=== PATIENT | male | born 1995 | race Caucasian/White ===

== ENCOUNTER 2016-12-04 22:02 | Inpatient (IN) | payer OTHER ==
[~2016-12-04] VITALS: Ht 182.9 cm; Wt 86.5 kg
[2016-12-04 22:04] VITALS: BP 138/102; PULSE 68; RESP 18; TEMP 97.8; O2SAT 98
[2016-12-04] MEDS ORDERED: SODIUM CHLOR 0.9% 1000 ML INJ 1,000 ML IV SCH (23:02)
--- NOTE | 2016-12-04 23:06 | PD ---
HPI Chief Complaint: Abdominal Pain Time Seen by Provider: 22:58 Travel History International Travel<30 days: No Contact w/Intl Traveler<30days: No Traveled to known affect area: No History of Present Illness HPI 21-year-old male complains of right lower quadrant abdominal pain and nausea vomiting diarrhea. Patient states that he has intermittent symptoms for the past year. Patient was seen at local walk-in clinic and urologist in the past for kidney stone. Patient states the symptoms started this morning and got worse this evening. Patient states the pain in cramping pain localized to right lower quadrant of the abdomen. Patient denies any pain radiation. Patient denies any fever chills. Patient states that the nausea vomiting that worse this evening. Patient denies any blood or mucus in the stool or vomitus. On a scale of 1-10 the pain is a 9. PFSH Past Medical History Medical History: Denies Significant Hx Tetanus Vaccination: < 5 Years Influenza Vaccination: No Past Surgical History Surgical History: No Previous Surgery Social History Alcohol Use: No Tobacco Use: No Substance Use: No Allergies-Medications (Allergen,Severity, Reaction): Coded Allergies: No Known Allergies (Unverified , 12/04/16) Reported Meds & Prescriptions Reported Meds & Active Scripts Active No Active Prescriptions or Reported Medications Review of Systems General / Constitutional: No: Fever Eyes: No: Visual changes HENT: No: Headaches Cardiovascular: No: Chest Pain or Discomfort Respiratory: No: Shortness of Breath Gastrointestinal: Positive: Nausea, Vomiting, Diarrhea, Abdominal Pain Genitourinary: No: Dysuria Musculoskeletal: No: Pain Skin: No Rash Neurologic: No: Weakness Psychiatric: No: Depression Endocrine: No: Polydipsia Hematologic/Lymphatic: No: Easy Bruising Physical Exam Narrative GENERAL: Well-nourished, well-developed patient. SKIN: Warm and dry. HEAD: Normocephalic. EYES: No scleral icterus. No injection or drainage. NECK: Supple, trachea midline. No JVD or lymphadenopathy. CARDIOVASCULAR: Regular rate and rhythm without murmurs, gallops, or rubs. RESPIRATORY: Breath sounds equal bilaterally. No accessory muscle use. GASTROINTESTINAL: Abdomen soft, nondistended. Patient has mild tenderness on palpation right lower quadrant of the abdomen. No rebound tenderness. No mass. MUSCULOSKELETAL: No cyanosis, or edema. BACK: Nontender without obvious deformity. No CVA tenderness. Neurologic exam normal. Data Data Last Documented VS Vital Signs Date Time Temp Pulse Resp B/P Pulse Ox O2 Delivery O2 Flow Rate FiO2 12/04/16 23:09 16 12/04/16 22:04 97.8 68 138/102 98 Room Air Orders Complete Blood Count With Diff (12/04/16 23:02) Comprehensive Metabolic Panel (12/04/16 23:02) Lipase (12/04/16 23:02) Urinalysis - C+S If Indicated (12/04/16:02) Ct Abd/Pel W/O Iv Contrast (12/04/16 23:02) Iv Access Insert/Monitor (12/04/16 23:02) Ecg Monitoring (12/04/16:) Oximetry (12/04/16:) Morphine Inj (Morphine Inj) (12/04/16 23:15) Ondansetron Inj (Zofran Inj) (12/04/16 23:15) Sodium Chlor 0.9% 1000 Ml Inj (Ns 1000 M (12/04/16 23:02) Ketorolac Inj (Toradol Inj) (12/04/16 23:15) Labs Laboratory Tests Test 12/04/16 23:25 White Blood Count 9.2 TH/MM3 Red Blood Count 5.08 MIL/MM3 Hemoglobin 15.1 GM/DL Hematocrit 43.4 % Mean Corpuscular Volume 85.5 FL Mean Corpuscular Hemoglobin 29.6 PG Mean Corpuscular Hemoglobin 34.7 % Concent Red Cell Distribution Width 12.9 % Platelet Count 243 TH/MM3 Mean Platelet Volume 7.8 FL Neutrophils (%) (Auto) 50.2 % Lymphocytes (%) (Auto) 38.7 % Monocytes (%) (Auto) 8.8 % Eosinophils (%) (Auto) 2.0 % Basophils (%) (Auto) 0.3 % Neutrophils # (Auto) 4.6 TH/MM3 Lymphocytes # (Auto) 3.6 TH/MM3 Monocytes # (Auto) 0.8 TH/MM3 Eosinophils # (Auto) 0.2 TH/MM3 Basophils # (Auto) 0.0 TH/MM3 CBC Comment DIFF FINAL Differential Comment Sodium Level 140 MEQ/L Potassium Level 3.4 MEQ/L Chloride Level 102 MEQ/L Carbon Dioxide Level 28.1 MEQ/L Anion Gap 10 MEQ/L Blood Urea Nitrogen 13 MG/DL Creatinine 1.36 MG/DL Estimat Glomerular Filtration 66 ML/MIN Rate Random Glucose 108 MG/DL Calcium Level 8.4 MG/DL Total Bilirubin 0.4 MG/DL Aspartate Amino Transf 18 U/L (AST/SGOT) Alanine Aminotransferase 27 U/L (ALT/SGPT) Alkaline Phosphatase 78 U/L Total Protein 7.2 GM/DL Albumin 3.9 GM/DL Lipase 98 U/L MDM Medical Decision Making Medical Screen Exam Complete: Yes Emergency Medical Condition: Yes Interpretation(s) Last Impressions Abdomen/Pelvis CT 12/04/16 2302 Signed Impressions: Service Date/Time: Sunday, December 04, 2016 23:29 - CONCLUSION: 1. Bilateral obstructing ureteral calculi with hydronephrosis and hydroureter noted. 2. Nonobstructing left renal calculus. Kaden Alejo MD 1:05 AM. CBC within normal limit. BMP with creatinine 1.36. Differential Diagnosis Differential diagnosis including nephrolithiasis, pyelonephritis, UTI, appendicitis, colitis. Narrative Course 21-year-old male with right lower quadrant abdominal pain, nausea vomiting diarrhea. History kidney stone. Normal saline solution 1 L IV bolus. Zofran 4 mg IV. Toradol 30 mg IV. Morphine 2 mg IV. Normal saline solution 1 25 cc an hour. Diagnosis Primary Impression: Nephrolithiasis Additional Impression: Renal insufficiency Admitting Information Admitting Physician Requests: Admit Scripts No Active Prescriptions or Reported Meds Lemuel Craig MD Dec 04, 2016 23:06
[2016-12-04 23:09] VITALS: RESP 16
[2016-12-04] MEDS ORDERED: ONDANSETRON HCL 4 MG/2 ML VIAL IVP ONE (23:15)
[2016-12-04] MEDS ORDERED: KETOROLAC TROMETHAMINE 30 MG/ML (IVP) VIAL IVP ONE (23:15)
[2016-12-04] MEDS ORDERED: MORPHINE SULFATE 4 MG/ML INJ IV PUSH ONE (23:15)
[2016-12-04 23:43] LABS: AUTOMATED NEUTROPHIL # 4.6 TH/MM3 (1.8-7.7); BASOPHIL % 0.3 % (0.0-2.0); EOSINOPHIL # 0.2 TH/MM3 (0-0.4); HEMATOCRIT 43.4 % (39.0-51.0); HEMO FLAGS DIFF FINAL; LYMPH % 38.7 % (9.0-44.0); LYMPHOCYTE # 3.6 TH/MM3 (1.0-4.8); MEAN CELL VOLUME 85.5 FL (80.0-100.0); MEAN CORPUSCULAR HEMOGLOBIN 29.6 PG (27.0-34.0); MEAN CORPUSCULAR HGB CONC 34.7 % (32.0-36.0); MONO % 8.8 % (0.0-8.0); NEUT % 50.2 % (16.0-70.0); PLATELET COUNT 243 TH/MM3 (150-450); RED BLOOD COUNT 5.08 MIL/MM3 (4.50-5.90); RED CELL DISTRIBUTION WIDTH 12.9 % (11.6-17.2); WHITE BLOOD COUNT 9.2 TH/MM3 (4.0-11.0)
--- NOTE | 2016-12-04 23:59 | RADRPT ---
EXAM DATE/TIME: 12/04/2016 23:29 [facility] COMPARISON: No previous studies available for comparison. INDICATIONS : Right flank pain. ORAL CONTRAST: No oral contrast ingested. RADIATION DOSE: 6.76 CTDIvol (mGy) MEDICAL HISTORY : Renal calculi. SURGICAL HISTORY : None. ENCOUNTER: Initial ACUITY: 1 day PAIN SCALE: 4/10 LOCATION: Right flank TECHNIQUE: Volumetric scanning of the abdomen and pelvis was performed. Using automated exposure control and ad justment of the mA and/or kV according to patient size, radiation dose was kept as low as reasonably achievable to obtain optimal diagnostic quality images. FINDINGS: Visualized portions of the liver, gallbladder, spleen, pancreas, adrenal glands unremarkable. There i s a nonobstructing left midpole renal calculus measuring 4.9 mm on image 42. There is mild left-sided hydronephrosis and proximal hydroureter secondary to 2 obstructing calculi best seen on coronal imag e 44 measuring 6.7 mm and 5.5 mm respectively.. Urinary bladder unremarkable. There is severe right-s ided hydronephrosis and mild perinephric fluid, hydroureter secondary to an obstructing calculus at t he ureterovesical junction measuring 1.2 cm on coronal image 47. There are no signs of bowel obstruct ion. The appendix is normal. No adenopathy or aneurysm. Lung bases are clear. Osseous structures are intact. CONCLUSION: 1. Bilateral obstructing ureteral calculi with hydronephrosis and hydroureter noted. 2. Nonobstructing left renal calculus. Kaden Alejo MD on December 04, 2016 at 23:55 Board Certified Radiologist. This report was verified electronically.
[2016-12-05] VITALS (7 sets, daily range): BP systolic 125–136; BP diastolic 62–89; PULSE 50–69; RESP 15–20; TEMP 97.5–98.2; O2SAT 96–100
[2016-12-05 00:02] LABS: ANION GAP 10 MEQ/L (5-15); AST (GOT) 18 U/L (15-37); BICARBONATE 28.1 MEQ/L (21.0-32.0); BLOOD UREA NITROGEN 13 MG/DL (7-18); CHLORIDE 102 MEQ/L (98-107); GLOMERULAR FILTRATION RATE 66 ML/MIN (>89); POTASSIUM 3.4 MEQ/L (3.5-5.1); SODIUM (NA) 140 MEQ/L (136-145)
[2016-12-05 00:05] LABS: ALKALINE PHOSPHATASE 78 U/L (45-117); ALT (GPT) 27 U/L (12-78); TOTAL BILIRUBIN ADULT 0.4 MG/DL (0.2-1.0)
[2016-12-05] MEDS ORDERED: SODIUM CHLOR 0.9% 1000 ML INJ 1,000 ML IV SCH (01:20)
[2016-12-05] MEDS ORDERED: ONDANSETRON HCL 4 MG/2 ML VIAL IVP PRN (01:30)
[2016-12-05] MEDS ORDERED: SODIUM CHLORIDE 0.9% FLUSH 10 ML FLUSH IV FLUSH PRN (01:30)
[2016-12-05] MEDS ORDERED: NALOXONE HCL 0.4 MG/ML AMP IV PRN (01:30)
[2016-12-05] MEDS: SODIUM CHLOR 0.9% 1000 ML INJ 1,000 ML IV SCH ×3 (01:35→18:26)
--- NOTE | 2016-12-05 03:39 | HHI.HP ---
[facility] No Primary Care Physician Admission Diagnosis nephrolithiasis. Renal insufficiency. Diagnoses: Chief Complaint: abdominal pain Travel History International Travel<30 Days: No Contact w/Intl Traveler <30 Da: No Traveled to Known Affected Are: No History of Present Illness History from patient, your physician communication, and review of medical records. Patient reports that yesterday night after dinner, he started having abdominal pain pointing to is his right lower abdomen. He stated this was radiating down to his groin and with associated right flank pain. He states that he has had history of renal stones about a year ago and was seen at an urgent care center at that time. He was told about it and was told that it would pass with hydration. He did not require any procedures then. The kidney stone at that time was on his left. He denies any nausea/vomiting/diarrhea. Denies fever. Reports of burning urination and pain on urination for the past few days. He states he did see some blood in his urine as well initially. However resolved now. He reports that he did have 1 times episode of diarrhea after dinner yesterday before coming to emergency room. Apart from the above, patient denies any recent chest pain/shortness of breath/ palpitations/focal weakness. Review of Systems Except as stated in HPI: all other systems reviewed are Neg Past Family Social History Past Medical History none Past Surgical History none Allergies: Coded Allergies: No Known Allergies (Unverified , 12/04/16) Family History dad- htn grandmother- brain and lungs Social History no smoking/ drinking/ drug Physical Exam Vital Signs Vital Signs Date Time Temp Pulse Resp B/P Pulse Ox O2 Delivery O2 Flow Rate FiO2 12/05/16 01:35 69 16 126/89 100 Room Air 12/04/16 23:09 16 12/04/16 22:04 97.8 68 18 138/102 98 Room Air Physical Exam GENERAL: This is a well-nourished, well-developed patient, in no apparent distress. SKIN: No rashes, ecchymoses or lesions. Cool and dry. HEAD: Atraumatic. Normocephalic. No temporal or scalp tenderness. EYES: No scleral icterus. No injection or drainage. ENT: Nose without bleeding, purulent drainage or septal hematoma.. Airway patent. NECK: Trachea midline. No JVD CARDIOVASCULAR: Regular rate and rhythm without murmurs, gallops, or rubs. RESPIRATORY: Clear to auscultation. Breath sounds equal bilaterally. No wheezes , rales, or rhonchi. GASTROINTESTINAL: Abdomen soft, non-tender, nondistended. . No guarding. MUSCULOSKELETAL: Extremities without clubbing, cyanosis, or edema. No calf tenderness. NEUROLOGICAL: Awake and alert. Motor and sensory grossly within normal limits. Normal speech. Laboratory Laboratory Tests Test 12/04/16 23:25 White Blood Count 9.2 Red Blood Count 5.08 Hemoglobin 15.1 Hematocrit 43.4 Mean Corpuscular Volume 85.5 Mean Corpuscular Hemoglobin 29.6 Mean Corpuscular Hemoglobin 34.7 Concent Red Cell Distribution Width 12.9 Platelet Count 243 Mean Platelet Volume 7.8 Neutrophils (%) (Auto) 50.2 Lymphocytes (%) (Auto) 38.7 Monocytes (%) (Auto) 8.8 Eosinophils (%) (Auto) 2.0 Basophils (%) (Auto) 0.3 Neutrophils # (Auto) 4.6 Lymphocytes # (Auto) 3.6 Monocytes # (Auto) 0.8 Eosinophils # (Auto) 0.2 Basophils # (Auto) 0.0 CBC Comment DIFF FINAL Differential Comment Sodium Level 140 Potassium Level 3.4 Chloride Level 102 Carbon Dioxide Level 28.1 Anion Gap 10 Blood Urea Nitrogen 13 Creatinine 1.36 Estimat Glomerular Filtration 66 Rate Random Glucose 108 Calcium Level 8.4 Total Bilirubin 0.4 Aspartate Amino Transf 18 (AST/SGOT) Alanine Aminotransferase 27 (ALT/SGPT) Alkaline Phosphatase 78 Total Protein 7.2 Albumin 3.9 Lipase 98 Result Diagram: 12/04/16232412/04/162324 Imaging Last 48 hours Impressions Abdomen/Pelvis CT 12/04/162301 Signed Impressions: Service Date/Time: Sunday, December 04, 2016 23:29 - CONCLUSION: 1. Bilateral obstructing ureteral calculi with hydronephrosis and hydroureter noted. 2. Nonobstructing left renal calculus. Kaden Alejo MD Assessment and Plan Problem List: (1) Nephrolithiasis ICD Code: N20.0 Status: Acute (2) Renal insufficiency ICD Code: N28.9 Status: Acute Assessment and Plan Impression: Bilateral obstructive uropathy with bilateral hydronephrosis Acute renal failuresecondary to above Plan: IV hydration. Nothing by mouth. pain meds. Urology was consulted. Start patient on Cipro 400 mg IV every 12 hours DVT prophylaxiswith ambulation. Discussed Condition With Patient, ER physician, patient's girlfriend at the bedside Physician Certification 2 Midnight Certification Type: Admission for Inpatient Services Order for Inpatient Services The services are ordered in accordance with Medicare regulations or non- Medicare payer requirements, as applicable. In the case of services not specified as inpatient-only, they are appropriately provided as inpatient services in accordance with the 2-midnight benchmark. Estimated LOS (days): 2 days is the estimated time the patient will need to remain in the hospital, assuming treatment plan goals are met and no additional complications. Post-Hospital Plan: Home Saran Perea MD Dec 05, 2016 03:39
[2016-12-05] MEDS: CIPROFLOXACIN 400 MG PREMIX 200 ML IV SCH ×2 (03:53→15:43)
[2016-12-05] MEDS: SODIUM CHLORIDE 0.9% FLUSH 10 ML FLUSH IV FLUSH SCH ×2 (08:52→21:00)
[2016-12-05 10:05] LABS: BLOOD, URINE MOD (NEG); CALCIUM OXALATE CRYSTALS,URINE OCC /hpf; COMMENT (UR) CULTURE INDICATED; CULTURE IF INDICATED CULTURE INDICATED; GLUCOSE,URINE NEG (NEG); HYALINE CAST, URINE 4 /lpf (RARE); KETONE, URINE NEG (NEG); MUCUS URINE FEW /lpf (OCC); NITRITE,URINE NEG (NEG); URINE COLOR YELLOW (YELLW/STRAW)
[2016-12-05] MEDS: MORPHINE SULFATE 4 MG/ML INJ IV PUSH PRN (15:43)
--- NOTE | 2016-12-05 16:10 | PD.CONS ---
HPI Service Urology Consult Requested By Reason for Consult Bilateral ureteral calculi Primary Care Physician No Primary Care Physician Diagnosis: (1) Nephrolithiasis ICD Code: N20.0 (2) Renal insufficiency ICD Code: N28.9 History of Present Illness 21-year-old gentleman with no prior history renal calculi who presented to the emergency room with complaints of right lower abdominal pain. Workup included a CT scan of the abdomen and pelvis that demonstrated a 1.2 cm right ureterovesical junction calculus causing right hydroureteronephrosis. Also noted was a 5 mm midpole left renal calculus and 2 obstructing mid left ureteral stones measuring 7 and 6 mm respectively. Patient reports that he has been producing urine and has been afebrile. Denies any prior urologic history. Has been afebrile. At the time of consultation the pain was well managed. Review of Systems Constitutional: DENIES: Fever, Chills Gastrointestinal: COMPLAINS OF: Abdominal pain (right lower abdominal pain), Diarrhea Genitourinary: COMPLAINS OF: Dysuria, DENIES: Hematuria Except as stated in HPI: all other systems reviewed are Neg Past Family Social History Past Medical History No significant past medical history No history nephrolithiasis Past Surgical History Denies Reported Medications None Allergies: Coded Allergies: No Known Allergies (Unverified , 12/04/16) Active Ordered Medications Refer to EMR Family History Father with history hypertension Social History Denies tobacco, alcohol or intravenous drug abuse Physical Exam Vital Signs Date Time Temp Pulse Resp B/P Pulse Ox O2 Delivery O2 Flow Rate FiO2 12/05/16 14:20 63 18 131/82 98 Room Air 12/05/16 11:51 97.9 51 15 131/78 96 Room Air 12/05/16 07:41 18 12/05/16 07:41 98.2 58 18 125/62 98 Room Air 12/05/16 06:39 65 16 128/79 100 Room Air 12/05/16 01:35 69 16 126/89 100 Room Air 12/04/16 23:09 16 12/04/16 22:04 97.8 68 18 138/102 98 Room Air Physical Exam GENERAL: This is a well-nourished, well-developed patient, in no apparent distress. SKIN: No rashes, ecchymoses or lesions. Cool and dry. HEAD: Atraumatic. Normocephalic. No temporal or scalp tenderness. EYES: Pupils equal round and reactive. Extraocular motions intact. No scleral icterus. No injection or drainage. ENT: Nose without bleeding, purulent drainage or septal hematoma. Throat without erythema, tonsillar hypertrophy or exudate. Uvula midline. Airway patent. NECK: Trachea midline. No JVD or lymphadenopathy. Supple, nontender, no meningeal signs. CARDIOVASCULAR: Regular rate and rhythm without murmurs, gallops, or rubs. RESPIRATORY: Clear to auscultation. Breath sounds equal bilaterally. No wheezes , rales, or rhonchi. GASTROINTESTINAL: Abdomen soft, non-tender, nondistended. No hepato-splenomegaly , or palpable masses. No guarding. GENITOURINARY: MUSCULOSKELETAL: Extremities without clubbing, cyanosis, or edema. No joint tenderness, effusion, or edema noted. No calf tenderness. Negative Homans sign bilaterally. NEUROLOGICAL: Awake and alert. Cranial nerves II through XII intact. Motor and sensory grossly within normal limits. Five out of 5 muscle strength in all muscle groups. Normal speech. Lab results reviewed: Yes Laboratory Tests Test 12/04/16 12/05/16 23:25 09:09 White Blood Count 9.2 Red Blood Count 5.08 Hemoglobin 15.1 Hematocrit 43.4 Mean Corpuscular Volume 85.5 Mean Corpuscular Hemoglobin 29.6 Mean Corpuscular Hemoglobin 34.7 Concent Red Cell Distribution Width 12.9 Platelet Count 243 Mean Platelet Volume 7.8 Neutrophils (%) (Auto) 50.2 Lymphocytes (%) (Auto) 38.7 Monocytes (%) (Auto) 8.8 Eosinophils (%) (Auto) 2.0 Basophils (%) (Auto) 0.3 Neutrophils # (Auto) 4.6 Lymphocytes # (Auto) 3.6 Monocytes # (Auto) 0.8 Eosinophils # (Auto) 0.2 Basophils # (Auto) 0.0 CBC Comment DIFF FINAL Differential Comment Sodium Level 140 Potassium Level 3.4 Chloride Level 102 Carbon Dioxide Level 28.1 Anion Gap 10 Blood Urea Nitrogen 13 Creatinine 1.36 Estimat Glomerular Filtration 66 Rate Random Glucose 108 Calcium Level 8.4 Total Bilirubin 0.4 Aspartate Amino Transf 18 (AST/SGOT) Alanine Aminotransferase 27 (ALT/SGPT) Alkaline Phosphatase 78 Total Protein 7.2 Albumin 3.9 Lipase 98 Urine Color YELLOW Urine Turbidity HAZY Urine pH 6.0 Urine Specific [place] 1.023 Urine Protein 30 Urine Glucose (UA) NEG Urine Ketones NEG Urine Occult Blood MOD Urine Nitrite NEG Urine Bilirubin NEG Urine Urobilinogen LESS THAN 2.0 Urine Leukocyte Esterase SMALL Urine RBC Urine WBC 12 Urine Calcium Oxalate Crystals OCC Urine Hyaline Casts 4 Urine Mucus FEW Microscopic Urinalysis Comment CULTURE INDICATED Date/Time Procedure Status Source Growth 12/05/16 09:09 Urine Culture Received Urine Clean Catch Pending Result Diagram: 12/04/16 2325 12/04/162324 Personally reviewed images: Yes Imaging Last Impressions Abdomen/Pelvis CT 12/04/162301 Signed Impressions: Service Date/Time: Sunday, December 04, 2016 23:29 - CONCLUSION: 1. Bilateral obstructing ureteral calculi with hydronephrosis and hydroureter noted. 2. Nonobstructing left renal calculus. Kaden Alejo MD Assessment and Plan Assessment and Plan Urologic impression: #1 bilateral obstructing ureteral calculi #2 nonobstructing left renal calculus Plan: #1 nothing by mouth after midnight #2 bring the patient to the operating room suite tomorrow for cystoscopy, right retrograde pyelogram, right ureteroscopy with laser lithotripsy, left retrograde pyelogram, possible left ureteroscopy and left ureteral stent placement. #3 discussed probable need for outpatient shockwave lithotripsy regarding the left ureteral and renal calculi. Jose Miguel Lund MD Dec 05, 2016 16:10
--- NOTE | 2016-12-05 17:05 | HHI.PR ---
Subjective Remarks f/u for obstructed stones. patient stated pain controlled. asking to eat. Denied any N/V at the moment. remains afebrile. Objective Vitals Vital Signs Date Time Temp Pulse Resp B/P Pulse Ox O2 Delivery O2 Flow Rate FiO2 12/05/16 14:20 63 18 131/82 98 Room Air 12/05/16 11:51 97.9 51 15 131/78 96 Room Air 12/05/16 07:41 18 12/05/16 07:41 98.2 58 18 125/62 98 Room Air 12/05/16 06:39 65 16 128/79 100 Room Air 12/05/16 01:35 69 16 126/89 100 Room Air 12/04/16 23:09 16 12/04/16 22:04 97.8 68 18 138/102 98 Room Air I/O 12/04/16 12/04/16 12/04/16 12/05/16 12/05/16 12/05/16 07:00 15:00 23:00 07:00 15:00 23:00 Intake Total 80 ml Balance 80 ml Intake Oral 80 ml # Voids 1 Result Diagram: 12/04/16232412/04/162324 Objective Remarks GENERAL: in NAD CARDIOVASCULAR: Regular rate and rhythm without murmurs, gallops, or rubs. RESPIRATORY: Breath sounds equal bilaterally. No accessory muscle use. GASTROINTESTINAL: Abdomen soft, non-tender, nondistended. MUSCULOSKELETAL: No cyanosis, or edema. BACK: Nontender without obvious deformity. No CVA tenderness. Medications and IVs Current Medications Morphine Sulfate (Morphine Inj) 2 mg ONCE ONCE IV PUSH Last administered on 23:10; Start 12/04/16 at 23:15; Stop 12/04/16 at 23:16; Status DC Ondansetron HCl 4 mg 4 mg ONCE ONCE IVP Last administered on 12/04/16 23:11; Start 12/04/16 at 23:15; Stop 12/04/16 at 23:16; Status DC Sodium Chloride (NS 1000 ml Inj) 1,000 ml @ 1,000 mls/hr Q1H IV Last administered on 12/04/16 23:10; Start 12/04/16 at 23:02; Stop 12/05/16 at 00:01 ; Status DC Ketorolac Tromethamine 30 mg 30 mg ONCE ONCE IVP Last administered on 23:11; Start 12/04/16 at 23:15; Stop 12/04/16 at 23:16; Status DC Sodium Chloride (NS 1000 ml Inj) 1,000 ml @ 100 mls/hr Q10H IV ; Start at 01:20; Stop 12/05/16 at 01:28; Status DC Sodium Chloride (NS Flush) 2 ml UNSCH PRN IV FLUSH FLUSH AFTER USING IV ACCESS ; Start 12/05/16 at 01:30 Sodium Chloride (NS Flush) 2 ml BID IV FLUSH ; Start 12/05/16 at 09:00 Ondansetron HCl (Zofran Inj) 4 mg Q6H PRN IVP NAUSEA OR VOMITING Last administered on 12/05/16 15:43; Start 12/05/16 at 01:30 Naloxone HCl (Narcan Inj) 0.4 mg UNSCH PRN IV SEE LABEL COMMENTS; Start at 01:30 Morphine Sulfate 2 mg 2 mg Q3H PRN IV PUSH PAIN >3 Last administered on 15:43; Start 12/05/16 at 01:30 Sodium Chloride 1,000 ml @ 125 mls/hr Q8H IV Last administered on 12/05/16 01 :35; Start 12/05/16 at 01:30 Ciprofloxacin/ Dextrose (Cipro 400 Mg Premix) 200 ml @ 200 mls/hr Q12H IV Last administered on 12/05/16 15:43; Start 12/05/16 at 04:00 A/P Problem List: (1) Nephrolithiasis ICD Code: N20.0 Status: Acute (2) Renal insufficiency ICD Code: N28.9 Status: Acute Assessment and Plan Bilateral obstructive uropathy with bilateral hydronephrosis.nonobstructing left renal calculus -urologist ff. -NPO at midnight tonight for cystoscopy, right retrograde pyelogram, right ureteroscopy with laser lithotripsy, left retrograde pyelogram, possible left ureteroscopy and left ureteral stent placement. -per urologist probable need for outpatient shockwave lithotripsy regarding the left ureteral and renal calculi. -treated empirically for UTI with cipro based on UA. DVT prophylaxis -low risk non indicated. Discharge Planning patient schedule for procedure tomorrow with urologist. Helga Beck MD Dec 05, 2016 17:05
[2016-12-06] VITALS: BP 134/68; PULSE 61; RESP 18; TEMP 97.8; O2SAT 97
[2016-12-06] MEDS: SODIUM CHLOR 0.9% 1000 ML INJ 1,000 ML IV SCH (03:31)
[2016-12-06] MEDS: CIPROFLOXACIN 400 MG PREMIX 200 ML IV SCH ×2 (03:31→17:31)
[2016-12-06 04:00] VITALS: BP 109/58; PULSE 56; RESP 18; TEMP 96.5; O2SAT 100
[2016-12-06 07:00] VITALS: BP 111/61; PULSE 49; RESP 20; TEMP 96; O2SAT 100
[2016-12-06 07:16] LABS: AUTOMATED NEUTROPHIL # 2.5 TH/MM3 (1.8-7.7); BASOPHIL % 0.4 % (0.0-2.0); EOSINOPHIL # 0.2 TH/MM3 (0-0.4); EOSINOPHIL % 2.9 % (0.0-4.0); HEMATOCRIT 39.3 % (39.0-51.0); HEMO FLAGS DIFF FINAL; LYMPH % 40.4 % (9.0-44.0); LYMPHOCYTE # 2.2 TH/MM3 (1.0-4.8); MEAN CELL VOLUME 86.5 FL (80.0-100.0); MEAN CORPUSCULAR HEMOGLOBIN 29.6 PG (27.0-34.0); MEAN CORPUSCULAR HGB CONC 34.2 % (32.0-36.0); MONO % 9.4 % (0.0-8.0); NEUT % 46.9 % (16.0-70.0); PLATELET COUNT 180 TH/MM3 (150-450); RED BLOOD COUNT 4.55 MIL/MM3 (4.50-5.90); WHITE BLOOD COUNT 5.3 TH/MM3 (4.0-11.0)
[2016-12-06 07:58] LABS: BICARBONATE 32.5 MEQ/L (21.0-32.0); POTASSIUM 4.8 MEQ/L (3.5-5.1)
[2016-12-06] MEDS ORDERED: ACETAMINOPHEN 1000 MG/100 ML VIAL IV ONE (11:15)
[2016-12-06] MEDS ORDERED: FAMOTIDINE 20 MG/2 ML VIAL ONE (11:15)
[2016-12-06] MEDS ORDERED: DICLOFENAC SODIUM 37.5 MG/ML VIAL IV PUSH ONE (11:16)
[2016-12-06] MEDS ORDERED: MIDAZOLAM HCL 2 MG/2 ML VIAL ONE (11:16)
[2016-12-06] MEDS ORDERED: fentaNYL CITRATE 250 MCG/5 ML AMP ONE (11:16)
[2016-12-06] MEDS ORDERED: DEXAMETHASONE SOD PHOS 4 MG/ML VIAL ONE (11:16)
[2016-12-06] MEDS ORDERED: IOHEXOL 350 MG/ML 50 ML BTL (for Cath Lab) OTHER ONE (12:38)
--- NOTE | 2016-12-06 13:20 | PD.OP ---
Operative Report Date of Surgery: Dec 06, 2016 Preoperative Diagnosis: (1) Bilateral ureteral calculi Postoperative Diagnosis: (1) Bilateral ureteral calculi Procedure: Cystoscopy, left retrograde pyelogram, left ureteral stent placement, right retrograde pyelogram, right ureteroscopy with laser lithotripsy and right ureteral catheter placement. Anesthesia: General Surgeon: Jose Miguel Lund Die Welder(s): None Operation and Findings: Indication for procedure: Case of a pleasant 21-year-old male with bilateral obstructing ureteral calculi who presents now for cystoscopy, bilateral retrograde pyelograms, left ureteral stent placement and right ureteroscopy with laser lithotripsy. Operative procedure detail: Patient was brought to the operating suite and placed supine on the OR table. He was then placed under general anesthesia. He was then repositioned in the dorsal lithotomy position and prepped and draped in normal sterile fashion. After an appropriate timeout was undertaken I proceeded with cystoscopic evaluation utilizing the rigid cystoscope with the 20 Qatari sheath and 30 lens. The urethra was patent without stricture formation and the prostatic urethra was nonobstructing. Further passes of cystoscope within the urinary bladder revealed both right and left ureteral orifices to be correct anatomic position the right orifice was erythematous and no reflux of urine could be seen. The left orifice was effluxing a slow amount of clear yellow urine. Next a proceeded with performing a left retrograde pyelogram study utilizing a 5 Qatari open-ended ureteral catheter. The patient had at least 1 obstructing proximal ureteral stone seen. A sensor 0.035 wire was then negotiated through the open-ended ureteral catheter and advanced upwards around the stone and up into the left renal pelvis. The open-ended catheter was then exchanged for a 6 Qatari 26 cm automation controls engineer double-J stent. The stent was passed under both cystoscopic and fluoroscopic guidance without difficulty. Once the stent was in proper position the trailing string was removed. I then proceeded to perform a right retrograde pyelogram study again utilizing the 5 Qatari open-ended ureteral catheter and the patient was noted to have a greater than 1 cm obstructing stone at the right ureterovesical junction as seen on previous CT scan. I was able to negotiate a sensor 0.035 wire around the stone and further advance the wire up into the right renal pelvis. The wire was secured to a sterile drape with hemostat after the cystoscope was withdrawn. The self dilating ureteroscope was then advanced alongside his previously past wire up to the stone. The stone was then broken down into multiple small fragments utilizing 200 holmium laser fiber. Next several of the larger stone fragments were retrieved with a 2.4 Qatari basket under direct vision and sent off for analysis. The basket was once again reintroduced and remaining small fragments were swept down into the urinary bladder. Repeat ureteroscopy failed to demonstrate any additional stones within the right ureter. I advanced the self dilating scope approximately two th[address] the way up the right ureter. The ureteroscope was then withdrawn and the cystoscope was reintroduced with the previously passed wire backloaded through the scope. A 5 Qatari catheter was then advanced over the wire approximately one third the way up to the patient's right ureter and the wire withdrawn. A right retrograde program study was repeated and no additional obstructing stones were seen. The right catheter was further advanced up into the right renal pelvis over the wire and the wire was then withdrawn. The bladder was drained of all irrigant fluid and the cystoscope removed. A 16 Qatari 10 cc Bains catheter was then placed and the open-ended right ureteral catheter was secured to the Bains via a connector. Both catheters were then placed to gravity drainage. The patient tolerated the procedures without complications. He will eventually require outpatient shockwave lithotripsy of the left ureteral and renal calculi. Jose Miguel Lund MD Dec 06, 2016 13:20
[2016-12-06] MEDS ORDERED: PERC5TAB12 PO (13:21)
[2016-12-06] MEDS ORDERED: TAMS5CAP PO (13:24)
[2016-12-06] MEDS ORDERED: PROPOFOL 200 MG/20 ML AMP IV ONE (13:42)
[2016-12-06] MEDS ORDERED: ONDANSETRON HCL 4 MG/2 ML VIAL IV PUSH ONE (13:43)
[2016-12-06] MEDS ORDERED: LACTATED RINGER'S 1000 ML INJ 1,000 ML IV ONE (13:43)
[2016-12-06] MEDS ORDERED: *morphine SULFATE 8 MG/ML PERIprocedure ONLY ONE (13:57)
--- NOTE | 2016-12-06 16:58 | HHI.DCPOC ---
Discharge Care Plan Diagnosis: (1) Bilateral ureteral calculi (2) Nephrolithiasis Goals to Promote Your Health * To prevent worsening of your condition and complications * To maintain your health at the optimal level Directions to Meet Your Goals Take your medications as prescribed Follow your dietary instruction Follow activity as directed Keep your appointments as scheduled Take your immunizations and boosters as scheduled If your symptoms worsen call your PCP, if no PCP go to Urgent Care Center or Emergency Room Smoking is Dangerous to Your Health. Avoid second hand smoke Call the 24-hour hour crisis hotline for domestic abuse at Shruthi Duke MD Dec 06, 2016 16:58
--- NOTE | 2016-12-06 17:04 | HHI.DS ---
Discharge Summary Admission Date Dec 05, 2016 at 01:22 Discharge Date: Dec 06, 2016 Admitting Diagnosis nephrolithiasis. Renal insufficiency. (1) Nephrolithiasis ICD Code: N20.0 (2) Renal insufficiency ICD Code: N28.9 Procedures Cystoscopy, left retrograde pyelogram, left ureteral stent placement, right retrograde pyelogram, right ureteroscopy with laser lithotripsy and right ureteral catheter placement. By Dr. Lund Brief History - From Admission HPI from he admitting physician. Patient reports that yesterday night after dinner, he started having abdominal pain pointing to is his right lower abdomen. He stated this was radiating down to his groin and with associated right flank pain. He states that he has had history of renal stones about a year ago and was seen at an urgent care center at that time. He was told about it and was told that it would pass with hydration. He did not require any procedures then. The kidney stone at that time was on his left. He denies any nausea/vomiting/diarrhea. Denies fever. Reports of burning urination and pain on urination for the past few days. He states he did see some blood in his urine as well initially. However resolved now. He reports that he did have 1 times episode of diarrhea after dinner yesterday before coming to emergency room. Apart from the above, patient denies any recent chest pain/shortness of breath/ palpitations/focal weakness. CBC/BMP: 12/06/16 0613 12/06/16 0613 Significant Findings Laboratory Tests Test 12/04/16 12/05/16 12/06/16 23:25 09:09 06:13 Monocytes (%) (Auto) 8.8 % (0.0-8.0) 9.4 % (0.0-8.0) Potassium Level 3.4 MEQ/L (3.5-5.1) Creatinine 1.36 MG/DL (0.60-1.30) Estimat Glomerular Filtration 66 ML/MIN (>89) 85 ML/MIN (>89) Rate Random Glucose 108 MG/DL 73 MG/DL (74-106) (74-106) Calcium Level 8.4 MG/DL 7.9 MG/DL (8.5-10.1) (8.5-10.1) Urine Turbidity HAZY (CLEAR) Urine Protein 30 mg/dL (NEG-TRACE) Urine Occult Blood MOD (NEG) Urine Leukocyte Esterase SMALL (NEG) Urine WBC 12 /hpf (0-5) Urine Calcium Oxalate Crystals OCC /hpf (NONE) Urine Mucus FEW /lpf (OCC) Chloride Level 108 MEQ/L (98-107) Carbon Dioxide Level 32.5 MEQ/L (21.0-32.0) Anion Gap 3 MEQ/L (5-15) Imaging Last Impressions Abdomen/Pelvis CT 12/04/16 2302 Signed Impressions: Service Date/Time: Friday, December 04, 2016 23:29 - CONCLUSION: 1. Bilateral obstructing ureteral calculi with hydronephrosis and hydroureter noted. 2. Nonobstructing left renal calculus. Kaden Alejo MD PE at Discharge GENERAL: in NAD CARDIOVASCULAR: Regular rate and rhythm without murmurs, gallops, or rubs. RESPIRATORY: Breath sounds equal bilaterally. No accessory muscle use. GASTROINTESTINAL: Abdomen soft, non-tender, nondistended. MUSCULOSKELETAL: No cyanosis, or edema. BACK: Nontender without obvious deformity. No CVA tenderness. Pt update on day of discharge Patient is seen post operatively. He states he is feeling great. Denies any pain. Bains draining clear urine. Hospital Course 21-year-old male admitted for bilateral obstructive uropathy with bilateral hydronephrosis secondary to nephrolithiasis. The patient was followed by urology. He underwent Cystoscopy, left retrograde pyelogram, left ureteral stent placement, right retrograde pyelogram, right ureteroscopy with laser lithotripsy and right ureteral catheter placement. The patient will follow up outpatient with urology outpatient shockwave lithotripsy regarding the left ureteral and renal calculi. The patient was treated empirically for UTI with ciprofloxacin. His urine culture was negative, therefore this was discontinued. The patient's pain significantly improved after the procedure. He is discharged home in good condition to follow up outpatient. Pt Condition on Discharge: Good Discharge Disposition: Discharge Home Discharge Time: <= 30 minutes Discharge Instructions DIET: Follow Instructions for: As Tolerated, No Restrictions Activities you can perform: Regular-No Restrictions New Medications: Oxycodone-Acetaminophen (Percocet) 5-325 mg Tab 1-2 TAB PO Q6H PRN PAIN #30 Ref 0 TAB Tamsulosin (Flomax) 0.4 Mg Cap 0.4 MG PO HS stent irritation #30 Ref 0 CAP Shruthi Duke MD Dec 06, 2016 17:03
[2016-12-06 17:09] VITALS: BP 126/62; PULSE 57; RESP 20; TEMP 96.6; O2SAT 96
[2016-12-06] MEDS: MORPHINE SULFATE 4 MG/ML INJ IV PUSH PRN (17:16)
[2016-12-06 17:21] VITALS: RESP 15
[2016-12-11] MEDS ORDERED: ACET1CAP18 PO (09:25)
[2017-01-08] MEDS ORDERED: PERC5TAB12 PO (08:38)
[2017-01-13] MEDS ORDERED: IBUP200T2 PO (14:24)
[2017-01-13] MEDS ORDERED: TAMS5CAP PO (14:24)
== END 2016-12-06 21:09 | disposition home or self-care (01) | DRG 669 ==
LOC: NEPC 22:02 → NEDA 12-05 01:22 → N05A 12-05 17:54
PROVIDERS: ADMIT Family Medicine; ATTEND Family Medicine
PROC: BT141ZZ Fluoroscopy of Kidneys, Ureters and Bladder using Low Osmolar Contrast (ICD-10-PCS; 2016-12-06)
PROC: 0T788DZ Dilation of Bilateral Ureters with Intraluminal Device, Via Natural or Artificial Opening Endoscopic (ICD-10-PCS; 2016-12-06)
PROC: 0TC68ZZ Extirpation of Matter from Right Ureter, Via Natural or Artificial Opening Endoscopic (ICD-10-PCS; principal; 2016-12-06 11:31)
DX: N13.2 Hydronephrosis with renal and ureteral calculous obstruction (principal); N39.0 Urinary tract infection, site not specified; N28.9 Disorder of kidney and ureter, unspecified
CPT/HCPCS: 74176; 74420; 80048; 80053; 81001; 82370; 83690; 85025; 87086; 88300; 96361; 96374; 96375; C1769; J0131; J0744; J1100; J1130; J1885; J2250; J2270; J2405; J3010; J7030; J7120; Q9967

== ENCOUNTER → 2016-12-11 | Day surgery (SDC) | payer OTHER ==
[~2016-12-11] VITALS: Ht 182.9 cm; Wt 82.6 kg
[~2016-12-11] MED LIST: ACET1CAP18 PO; DEXAMETHASONE SOD PHOS 4 MG/ML VIAL ONE; FAMOTIDINE 20 MG/2 ML VIAL ONE; IBUP200T2 PO; INSULIN HUMAN REGULAR 1,000 UNITS/10 ML VIAL SQ PRN; LACTATED RINGER'S 1000 ML IV SCH; METOPROLOL TARTRATE 25 MG TAB PO PRN; MIDAZOLAM HCL 2 MG/2 ML VIAL ONE; PERC5TAB12 PO; PROPOFOL 200 MG/20 ML AMP IV ONE; SODIUM CHLORID 0.9% 500 ML IV SCH; SODIUM CHLORIDE 0.9% INJ 100 ML ONE; TAMS5CAP PO; ceFAZolin 1,000 MG/NS 100 ML IV SCH; ceFAZolin INJ 1,000 MG VIAL ONE
--- NOTE | 2016-12-11 09:34 | RADRPT ---
EXAM DATE/TIME: 12/11/2016 09:02 [facility] COMPARISON: No previous studies available for comparison. INDICATIONS : Pre-op Lithotripsy. Bilateral kidney stones. MEDICAL HISTORY : Renal calculi. SURGICAL HISTORY : None. ENCOUNTER: Initial ACUITY: 1 day PAIN SCORE: 5/10 LOCATION: Bilateral Abdomen. FINDINGS: Double J stent is in place on the left with an 8 mm stone at the left ureterovesical junction. January e a second stone adjacent to the stent in the renal pelvis. Stent is in good position. CONCLUSION: Stone adjacent to the stent in the UPJ on the left. Juan Ramon Ward MD FACR on December 11, 2016 at 9:25 Board Certified Radiologist. This report was verified electronically.
[2016-12-11 09:37] VITALS: BP 147/74; PULSE 61; RESP 16; TEMP 98.6; O2SAT 100
--- NOTE | 2016-12-11 15:47 | PD.OP ---
Operative Report Date of Surgery: Dec 11, 2016 Preoperative Diagnosis: 9 mm left ureteral stone Postoperative Diagnosis: Same Procedure: Left extraportal shockwave lithotripsy Anesthesia: TIVA Surgeon: Omid Chamorro Or Manager(s): None Resident Surgeon: None Operation and Findings: This is a 21-year-old male who had findings of a 9 mm left ureteral stone. Patient underwent cystoscopy left double-J stent placement while having treatment of his lower right ureteral stone at that time. He presents today to undergo left extracoporeal shockwave lithotripsy. Risk and benefits were discussed and he was under proceed. Patient was brought to operative identified by myself as Madhu Keller. He was placed in the supine position on the operating table, received preprocedure antibiotics and TIVA incision was made posterior. The fluoroscopic imaging guidance, the stone was visualized. It was located in the proximal ureter along the ureteral stent. ESWL therapy commenced and fragmentation the stone was visualized. The patient received a total of 3000 shocks. He tolerated procedure well and was woken and transferred from stable condition. He'll follow-up in 2 weeks in the office and obtain a KUB x-ray prior to determine its stone burden has been relieved. Omid Chamorro DO Dec 11, 2016 15:47
[2016-12-11 17:30] VITALS: BP 127/63; PULSE 55; RESP 16; TEMP 97.8; O2SAT 100
== END | disposition home or self-care (01) ==
LOC: HSDC 08:23
PROVIDERS: ATTEND Urology
DX: N20.1 Calculus of ureter (principal)
CPT/HCPCS: 00873; 50590; 74000; J0690; J1100; J2250

== ENCOUNTER → 2017-01-08 | Day surgery (SDC) | payer OTHER ==
[~2017-01-08] VITALS: Ht 182.9 cm; Wt 82.8 kg
[~2017-01-08] MED LIST changes: +ACETAMINOPHEN 1000 MG/100 ML VIAL IV ONE; +CHLORHEXIDINE GLUCONATE 2 % 1 PACK (2 CLOTHS) TOPICAL PRN; -DEXAMETHASONE SOD PHOS 4 MG/ML VIAL ONE; -FAMOTIDINE 20 MG/2 ML VIAL ONE; +LACTATED RINGER'S 1000 ML IV PRN; -LACTATED RINGER'S 1000 ML IV SCH; +ONDANSETRON HCL 4 MG/2 ML VIAL IV PUSH ONE; +ONDANSETRON HCL 4 MG/2 ML VIAL IV PUSH PRN; +POVIDONE IODINE 5% (ANTISEPSIS KIT) 4 APPLICATIONS EACH NARE PRN; +SODIUM CHLORID 0.9% 500 ML IV PRN; -SODIUM CHLORID 0.9% 500 ML IV SCH; -SODIUM CHLORIDE 0.9% INJ 100 ML ONE; -ceFAZolin 1,000 MG/NS 100 ML IV SCH; -ceFAZolin INJ 1,000 MG VIAL ONE; +fentaNYL CITRATE 250 MCG/5 ML AMP ONE; +oxyCODONE/ACETAMINOPHEN 5 MG/325 MG TAB PO PRN
[2017-01-08 06:17] VITALS: BP 134/69; PULSE 62; RESP 18; TEMP 97.8; O2SAT 98
--- NOTE | 2017-01-08 06:52 | RADRPT ---
EXAM DATE/TIME: 01/08/2017 06:25 [facility] COMPARISON: ABDOMEN KUB ONLY, December 11, 2016, 9:02. INDICATIONS : Lithotripsy. Pre OP. MEDICAL HISTORY : None. SURGICAL HISTORY : None. ENCOUNTER: Initial ACUITY: 1 day PAIN SCORE: 0/10 LOCATION: Bilateral Abdomen FINDINGS: Left sided double-J stent remains in place and is unchanged in position compared to the prior study. There continues to be an oval-shaped stone adjacent to the stent at the level of the left UPJ. This i s also unchanged compared to the prior study. The bowel gas pattern is within normal limits. No signi ficant change compared to the prior study. CONCLUSION: Stable KUB compared to the prior exam. No change in position of the left double-J stent and stone adj acent to the stent at the UPJ Nish Vasquez MD on January 08, 2017 at 6:49 Board Certified Radiologist. This report was verified electronically.
[2017-01-08 06:55] LABS: AUTOMATED NEUTROPHIL # 2.6 TH/MM3 (1.8-7.7); BASOPHIL % 0.6 % (0.0-2.0); EOSINOPHIL # 0.2 TH/MM3 (0-0.4); EOSINOPHIL % 3.9 % (0.0-4.0); HEMATOCRIT 42.7 % (39.0-51.0); HEMO FLAGS DIFF FINAL; LYMPH % 39.8 % (9.0-44.0); LYMPHOCYTE # 2.2 TH/MM3 (1.0-4.8); MEAN CELL VOLUME 85.4 FL (80.0-100.0); MEAN CORPUSCULAR HGB CONC 35.1 % (32.0-36.0); MONO % 8.4 % (0.0-8.0); NEUT % 47.3 % (16.0-70.0); PLATELET COUNT 221 TH/MM3 (150-450); WHITE BLOOD COUNT 5.4 TH/MM3 (4.0-11.0)
--- NOTE | 2017-01-08 08:37 | PD.OP ---
Operative Report Date of Surgery: Jan 08, 2017 Preoperative Diagnosis: (1) Ureteral calculus, left Postoperative Diagnosis: (1) Ureteral calculus, left Procedure: Extracorporeal shockwave lithotripsy of left ureteral calculi Anesthesia: General Surgeon: Jose Miguel Lund Job Training Supervisor(s): None Operation and Findings: Indication for procedure: Case of a pleasant 21-year-old gentleman with 2 obstructing proximal left ureteral calculi adjacent to one another who presents today to undergo extrapleural shockwave lithotripsy. Patient also has a less than 5 mm calculus involving the lower pole of the left kidney. Operative procedure in detail: Patient was brought to the operating suite and placed supine on the lithotripsy table. He was then placed under general anesthesia. After appropriate timeout was undertaken the left ureteral calculi were localized with fluoroscopy. Once again they were adjacent to one another and located in the proximal left ureter. The previously placed left ureteral stent appeared to be in good position. The patient underwent extracorporeal shockwave lithotripsy of these ureteral calculi utilizing the OpenFin Piezolith 3000 device. The patient received a total of 3000 shocks with a maximum power level setting of 20. At the conclusion of the procedure the stones appeared somewhat asbestos wire finisher in intensity consistent with fragmentation. The patient tolerated the procedure without complications and was transferred to the PACU in satisfactory condition. Jose Miguel Lund MD Jan 08, 2017 08:37
[2017-01-08 10:06] VITALS: BP 140/69; PULSE 62; RESP 18; TEMP 96.9; O2SAT 100
== END | disposition home or self-care (01) ==
LOC: HSDC 05:30
PROVIDERS: ATTEND Urology
DX: N20.2 Calculus of kidney with calculus of ureter (principal); Z84.1 Family history of disorders of kidney and ureter
CPT/HCPCS: 00873; 50590; 74000; 85025; J0131; J2250; J2405; J3010; J7120

== ENCOUNTER → 2017-01-14 | Day surgery (SDC) | payer OTHER ==
[~2017-01-14] VITALS: Ht 182.9 cm; Wt 81.8 kg
[~2017-01-14] MED LIST changes: +*MEPERIDINE 25 MG INJ VIAL PERIprocedural Use ONLY ONE; -ACET1CAP18 PO; +AMPICILLIN 1 GM/NS 100 ML IV SCH; +BELLADONNA ALKALOIDS/OPIUM 60 MG SUPP RECTAL ONE; +DO NOT ADM ANY ANTICOAGULANT DRUGS PRN; +FAMOTIDINE 20 MG/2 ML VIAL ONE; +FUROSEMIDE 20 MG/2 ML VIAL IV PUSH ONE; +FUROSEMIDE 40 MG/4 ML VIAL ONE; +GENTAMICIN INJ 240 MG in SODIUM CHLORIDE 0.9% INJ 100 ML IV SCH; +IOHEXOL 350 MG/ML 50 ML BTL (for RAD DIAG) ONE; +LACTATED RINGER'S 1000 ML INJ 1,000 ML IV ONE; +LIDOCAINE 2% JELLY 30 ML TUBE ONE; +NEOSTIGMINE 3 MG/3 ML SYR IV ONE; -ONDANSETRON HCL 4 MG/2 ML VIAL IV PUSH PRN; -oxyCODONE/ACETAMINOPHEN 5 MG/325 MG TAB PO PRN
[2017-01-14 12:15] VITALS: BP 139/78; PULSE 78; RESP 18; TEMP 97.6; O2SAT 100
--- NOTE | 2017-01-14 15:00 | PD.OP ---
Operative Report Date of Surgery: January 14, 2017 Preoperative Diagnosis: Left ureteral and renal calculi Postoperative Diagnosis: Same Procedure: Cystoscopy, left ureteroscopy with laser lithotripsy, stone extraction, left double-J stent exchange Anesthesia: PIERRE Surgeon: Omid Chamorro Utility Repairer(s): None Resident Surgeon: None Operation and Findings: Patient was brought to the operating identify myself as Madhu Briggs. He was placed the dorsal lithotomy position, prepped and draped in usual sterile fashion, received preprocedure antibiotics, and general endotracheal tube anesthesia was administered. 22 Azerbaijani cystoscope was inserted in the bladder and the alligator graspers used to pull the stent to the urethral meatus. A 0.35 sensor wire was then passed through the stent and the wire was left with good curl in the kidney. The stent was removed over the wire. The the navigator ureteral access sheath was then passed over the wire and the wire was then removed once the access sheath was in good position. Scope was then brought to the access sheath and the ureteral stone was initially lasered with the 200 laser fiber at a setting of 10 and 1000. Good fragmentation the stone was then performed and the stone was then removed using the nitinol basket. Further stones were identified in the left mid collecting system and using the 200 laser fiber these were also fragmented and removed using a nitinol basket. The kidney and the ureter within stone free with only small stones identified which were too small to be grasped with the basket. The 0.35 sensor wire was then passed through the ureteral access sheath and the access sheath was removed. The cystoscope was backloaded over the wire and then a 26 cm 6 Azerbaijani left double-J stent was placed with good curl in the kidney and a good curl in the bladder. String was then taped to the penis and he was awoken and transferred to her room in stable condition. He'll follow-up in the office tomorrow with stent pull. Omid Chamorro DO January 14, 2017 15:00
[2017-01-14 16:15] VITALS: BP 126/71; PULSE 59; RESP 18; O2SAT 99
== END | disposition home or self-care (01) ==
LOC: HSDC 11:03
PROVIDERS: ATTEND Urology
DX: N20.2 Calculus of kidney with calculus of ureter (principal)
CPT/HCPCS: 00918; 52356; 74420; 82370; 88300; C1769; C2617; J0131; J0290; J1580; J1940; J2175; J2250; J2405; J2710; J3010; J7120; Q9967